=== PATIENT | male | born 1960 ===

== ENCOUNTER 2023-12-25 16:05 | Outpatient (CLI) | payer BC, SELFPAY ==
--- NOTE | 2023-12-25 10:00 | DI.RAD_ITS ---
Exam(s) XR KNEE RT 4V AP,LAT,DAVIS,PAT EXAM: XR KNEE RT 4V AP,LAT,DAVIS,PAT CLINICAL HISTORY: RIGHT KNEE OA. TECHNIQUE: 2D digital imaging was performed of the right knee. Four views obtained. Merchant, AP, la teral and PA tunnel views were obtained. COMPARISON: No exams were available for comparison FINDINGS: BONES: No acute fracture is present. No bony destructive lesion is seen. There is enthesophyte at the anterior patella. JOINTS: There is mild narrowing of the medial femoral tibial and patellofemoral joints. Osteophytes are seen at the posterior patella. There is a small joint effusion. SOFT TISSUE: Normal. IMPRESSION: Moderate arthrosis of the right knee. DATA REPOSITORY: RADIATION DOSE DELIVERED:
--- NOTE | 2023-12-25 10:00 | DI.RAD_ITS ---
Exam(s) XR KNEE LT 4V AP,LAT,DAVIS,PAT EXAM: XR KNEE LT 4V AP,LAT,DAVIS,PAT CLINICAL HISTORY: LEFT KNEE PAIN. TECHNIQUE: 2D digital imaging was performed of the left knee. Four images were obtained. Merchant, AP, lateral and PA tunnel views were obtained. COMPARISON: CR XR KNEE RT 4V AP,LAT,DAVIS,PAT from 12/25/2023 FINDINGS: BONES: No acute fracture is present. No bony destructive lesion is seen. There are enthesophytes at the anterior patella. JOINTS: The knee is normally aligned. No joint effusion is seen. There is a faint density adjacent to the lateral tibial spine which may represent a loose body. SOFT TISSUE: Normal. IMPRESSION: No significant degenerative changes. DATA REPOSITORY: RADIATION DOSE DELIVERED:
== END 2023-12-25 16:06 | disposition home or self-care (01) ==
LOC: DIORS 16:05
PROVIDERS: Visit Provider Physician Assistant
DX: M25.562 Pain in left knee (principal); M25.561 Pain in right knee
CPT/HCPCS: 73564